=== PATIENT | male | born 1960 | race Caucasian/White ===

== ENCOUNTER 2016-09-23 11:24 | Emergency (ER) | payer OTHER ==
[~2016-09-23] VITALS: Ht 185.4 cm; Wt 109.0 kg
[~2016-09-23 11:24] MED LIST: CYCL-36 PO; IBUP-232 PO
[2016-09-23 11:26] VITALS: BP 132/97; PULSE 86; RESP 14; TEMP 98.2; O2SAT 99
--- NOTE | 2016-09-23 11:28 | PD ---
Physical Exam Time Seen by Provider: 11:27 Narrative 55 y/o male presents for evaluation of right heel pain for 2-3 days. Denies specific mechanism of injury. Pain was worse this morning, causing a fall. Vital signs reviewed. Seen at triage desk. Awaiting bed placement. Data Data Last Documented VS Vital Signs Date Time Temp Pulse Resp B/P Pulse Ox O2 Delivery O2 Flow Rate FiO2 09/23/16 11:26 98.2 86 14 132/97 99 MDM Medical Record Reviewed: Yes Supervised Visit with DENITA: Phillip Rebolledo September 23, 2016 11:28
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
--- NOTE | 2016-09-23 12:38 | RADRPT ---
EXAM DATE/TIME: 09/23/2016 12:25 [facility] COMPARISON: No previous studies available for comparison. INDICATIONS : No known injury pain entire heel with weight bearing. MEDICAL HISTORY : None. SURGICAL HISTORY : ENCOUNTER: Initial ACUITY: 1 week PAIN SCORE: 10/10 LOCATION: Right heel. FINDINGS: A moderate-sized plantar heel spur is evident. There is no evidence of fracture, dislocation or bony destruction. The hindfoot is otherwise intact. CONCLUSION: Moderately large heel spur Ravi Rao MD on September 23, 2016 at 12:36 Board Certified Radiologist. This report was verified electronically.
[2016-09-23] MEDS ORDERED: IBUP800T23 PO (12:53)
== END 2016-09-23 13:12 | disposition home or self-care (01) ==
LOC: NEPK 11:24
DX: M77.31 Calcaneal spur, right foot (principal)
CPT/HCPCS: 73650; 99283; E0113

== ENCOUNTER → 2016-11-04 | Outpatient (CLI) | payer OTHER ==
[~2016-11-04] MED LIST changes: -CYCL-36 PO; -IBUP-232 PO; +IBUP800T23 PO
[2016-11-04 08:54] LABS: AUTOMATED NEUTROPHIL # 4.2 TH/MM3 (1.8-7.7); BASOPHIL % 0.3 % (0.0-2.0); EOSINOPHIL # 0.2 TH/MM3 (0-0.4); EOSINOPHIL % 3.4 % (0.0-4.0); HEMATOCRIT 46.5 % (39.0-51.0); HEMO FLAGS DIFF FINAL; LYMPH % 28.3 % (9.0-44.0); LYMPHOCYTE # 1.9 TH/MM3 (1.0-4.8); MEAN CELL VOLUME 90.6 FL (80.0-100.0); MEAN CORPUSCULAR HEMOGLOBIN 30.2 PG (27.0-34.0); MEAN CORPUSCULAR HGB CONC 33.4 % (32.0-36.0); MONO % 6.1 % (0.0-8.0); NEUT % 61.9 % (16.0-70.0); PLATELET COUNT 261 TH/MM3 (150-450); RED BLOOD COUNT 5.13 MIL/MM3 (4.50-5.90); RED CELL DISTRIBUTION WIDTH 12.7 % (11.6-17.2); WHITE BLOOD COUNT 6.8 TH/MM3 (4.0-11.0)
[2016-11-04 09:22] LABS: ANION GAP 10 MEQ/L (5-15); AST (GOT) 12 U/L (15-37); BICARBONATE 24.7 MEQ/L (21.0-32.0); BLOOD UREA NITROGEN 9 MG/DL (7-18); CHLORIDE 101 MEQ/L (98-107); GLOMERULAR FILTRATION RATE 75 ML/MIN (>89); GLUCOSE,FASTING 107 MG/DL (74-99); POTASSIUM 3.7 MEQ/L (3.5-5.1); SODIUM (NA) 136 MEQ/L (136-145)
[2016-11-04 09:33] LABS: ALKALINE PHOSPHATASE 88 U/L (45-117); ALT (GPT) 30 U/L (12-78); LDL CHOLESTEROL 154 MG/DL (0-99); TOTAL BILIRUBIN ADULT 0.3 MG/DL (0.2-1.0)
== END ==
LOC: CLAB 08:22
PROVIDERS: ATTEND Family Medicine
DX: M77.30 Calcaneal spur, unspecified foot (principal); E66.9 Obesity, unspecified
CPT/HCPCS: 36415; 80053; 80061; 84443; 85025

== ENCOUNTER 2017-07-13 07:22 | Emergency (ER) | payer OTHER ==
[~2017-07-13] VITALS: Ht 185.4 cm; Wt 106.5 kg
[2017-07-13 07:23] VITALS: BP 130/83; PULSE 75; RESP 16; TEMP 97.8; O2SAT 98
[2017-07-13 07:38] VITALS: BP 135/82; PULSE 71; RESP 16; O2SAT 98
[2017-07-13 08:01] LABS: AUTOMATED NEUTROPHIL # 3.7 TH/MM3 (1.8-7.7); BASOPHIL % 0.5 % (0.0-2.0); EOSINOPHIL # 0.2 TH/MM3 (0-0.4); EOSINOPHIL % 3.1 % (0.0-4.0); HEMATOCRIT 44.5 % (39.0-51.0); HEMOGLOBIN 15.4 GM/DL (13.0-17.0); LYMPH % 30.2 % (9.0-44.0); LYMPHOCYTE # 1.8 TH/MM3 (1.0-4.8); MEAN CELL VOLUME 89.5 FL (80.0-100.0); MEAN CORPUSCULAR HEMOGLOBIN 30.9 PG (27.0-34.0); MEAN CORPUSCULAR HGB CONC 34.5 % (32.0-36.0); MEAN PLATELET VOLUME 7.1 FL (7.0-11.0); MONO % 6.2 % (0.0-8.0); MONOCYTE # 0.4 TH/MM3 (0-0.9); PLATELET COUNT 298 TH/MM3 (150-450); RED BLOOD COUNT 4.98 MIL/MM3 (4.50-5.90); RED CELL DISTRIBUTION WIDTH 12.8 % (11.6-17.2); WHITE BLOOD COUNT 6.1 TH/MM3 (4.0-11.0)
[2017-07-13 08:18] LABS: ALBUMIN 3.9 GM/DL (3.4-5.0); AST (GOT) 17 U/L (15-37); BICARBONATE 26.9 MEQ/L (21.0-32.0); BLOOD UREA NITROGEN 14 MG/DL (7-18); CALCIUM 8.9 MG/DL (8.5-10.1); CHLORIDE 103 MEQ/L (98-107); CREATININE 1.07 MG/DL (0.60-1.30); GLOMERULAR FILTRATION RATE 71 ML/MIN (>89); GLUCOSE,RANDOM 113 MG/DL (74-106); SODIUM (NA) 136 MEQ/L (136-145)
[2017-07-13 08:19] LABS: ALT (GPT) 26 U/L (12-78)
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
[2017-07-13 08:22] LABS: ALKALINE PHOSPHATASE 90 U/L (45-117); TOTAL BILIRUBIN ADULT 0.4 MG/DL (0.2-1.0); TOTAL PROTEIN 7.7 GM/DL (6.4-8.2)
[2017-07-13] MEDS ORDERED: IOHEXOL 350 MG/ML 10 ML VIAL (for RAD DIAG) IVCONTRAST ONE (08:39)
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
[2017-07-13 08:40] LABS: BACTERIA, URINE RARE /hpf; BILIRUBIN, URINE NEG (NEG); BLOOD, URINE NEG (NEG); GLUCOSE,URINE NEG (NEG); KETONE, URINE NEG (NEG); NITRITE,URINE NEG (NEG); URINE COLOR YELLOW (YELLW/STRAW); URINE LEUKOCYTE ESTERASE NEG (NEG)
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
[2017-07-13] MEDS ORDERED: HYDR-3111 PO (10:00)
--- NOTE | 2017-07-13 18:20 | EKG ---
Date Performed: 07/13/2017 Time Performed: 07:37:37 PTAGE: 56 years EKG: Sinus rhythm NORMAL ECG NO PREVIOUS TRACING DOCTOR: Paulina Beyer Interpretating Date/Time 07/13/2017 18:18:23
== END 2017-07-13 10:27 | disposition home or self-care (01) ==
LOC: NEPE 07:22
DX: S22.31XA Fracture of one rib, right side, initial encounter for closed fracture (principal); S30.1XXA Contusion of abdominal wall, initial encounter; Y04.2XXA Assault by strike against or bumped into by another person, initial encounter; Y93.55 Activity, bike riding
CPT/HCPCS: 71046; 74177; 80053; 81001; 83690; 85025; 93005; 99285; Q9967